=== PATIENT | female | born 1985 | race Caucasian/White ===

== ENCOUNTER 2020-11-03 09:58 | Outpatient (CLI) | payer OTHER ==
[~2020-11-03] VITALS: Ht 167.6 cm; Wt 95.5 kg
[2020-11-03 10:16] VITALS: BP 121/65
[2020-11-03 10:28] VITALS: BP 121/65
[2020-11-03 11:56] LABS: MICROSCOPIC NOT IND
[2020-11-03 12:36] LABS: BASOPHILS % (AUTO) 0 % (0-1); EOSINOPHILS % (AUTO) 0 % (1-7); LYMPHOCYTES % (AUTO) 16 % (22-44); MD NO; MEAN CORPUSCULAR HEMOGLOBIN 32.8 pg (27.0-34.8); MEAN CORPUSCULAR HGB CONC 35.3 g/dL (32.4-35.8); MEAN PLATELET VOLUME 8.4 fL (7.4-10.4); MONOCYTES % (AUTO) 5 % (2-9); NEUTROPHILS % (AUTO) 79 % (42-75); PLATELET COUNT 134 x10^3/uL (130-400); RED BLOOD COUNT 3.33 x10^6/uL (3.82-5.3); RED CELL DISTRIBUTION WIDTH 13.1 % (9.6-15.2)
[2020-11-03 12:42] LABS: ALANINE AMINOTRANSFERASE 53 U/L (12-78); ALBUMIN 2.3 g/dL (3.4-5.0); ANION GAP 8 mmol/L (5-15); CALCIUM 8.7 mg/dL (8.5-10.1); CHLORIDE 109 mmol/L (98-107); CREATININE 0.64 mg/dL (0.55-1.02)
[2020-11-03 12:45] LABS: ALKALINE PHOSPHATASE 109 U/L (45-117); BILIRUBIN,TOTAL 0.6 mg/dL (0.2-1.0); TOTAL PROTEIN 5.3 g/dL (6.4-8.2)
== END 2020-11-03 13:48 | disposition home or self-care (01) ==
LOC: LDOP 09:58
PROVIDERS: ATTEND Obstetrics & Gynecology
DX: O26.893 Other specified pregnancy related conditions, third trimester (principal); K82.4 Cholesterolosis of gallbladder; R10.10 Upper abdominal pain, unspecified; Z3A.34 34 weeks gestation of pregnancy
CPT/HCPCS: 36415; 59025; 76705; 80053; 81003; 85025; 87086

== ENCOUNTER 2020-11-04 08:59 | Outpatient (CLI) | payer OTHER ==
[~2020-11-04] VITALS: Ht 167.6 cm; Wt 95.5 kg
[2020-11-04 09:14] VITALS: BP 102/59
[2020-11-04 09:50] LABS: ALANINE AMINOTRANSFERASE 47 U/L (12-78); ALBUMIN 2.3 g/dL (3.4-5.0); ANION GAP 9 mmol/L (5-15); CALCIUM 8.4 mg/dL (8.5-10.1); CHLORIDE 105 mmol/L (98-107)
[2020-11-04 09:52] LABS: ALKALINE PHOSPHATASE 114 U/L (45-117); BILIRUBIN,TOTAL 0.7 mg/dL (0.2-1.0); TOTAL PROTEIN 5.4 g/dL (6.4-8.2)
== END 2020-11-04 10:15 | disposition home or self-care (01) ==
LOC: LDOP 08:59
PROVIDERS: ATTEND Obstetrics & Gynecology
DX: Z34.93 Encounter for supervision of normal pregnancy, unspecified, third trimester (principal); Z3A.34 34 weeks gestation of pregnancy
CPT/HCPCS: 36415; 59025; 80053

== ENCOUNTER 2020-11-07 12:17 | Observation (INO) | payer OTHER ==
[~2020-11-07] VITALS: Ht 167.6 cm; Wt 93.2 kg
[2020-11-07] MEDS ORDERED: ACETAMINOPHEN 500 MG TABLET ONE (12:42)
[2020-11-07 12:47] LABS: MICROSCOPIC INDICATED
[2020-11-07] MEDS ORDERED: ACETAMINOPHEN 500 MG TABLET PO ONE (13:00)
[2020-11-07 13:06] LABS: BASOPHILS % (AUTO) 0 % (0-1); EOSINOPHILS % (AUTO) 0 % (1-7); LYMPHOCYTES % (AUTO) 21 % (22-44); MEAN CORPUSCULAR HEMOGLOBIN 32.4 pg (27.0-34.8); MEAN CORPUSCULAR HGB CONC 34.6 g/dL (32.4-35.8); MEAN PLATELET VOLUME 8.4 fL (7.4-10.4); MONOCYTES % (AUTO) 4 % (2-9); NEUTROPHILS % (AUTO) 75 % (42-75); PLATELET COUNT 143 x10^3/uL (130-400); RED BLOOD COUNT 3.22 x10^6/uL (3.82-5.3); RED CELL DISTRIBUTION WIDTH 13.2 % (9.6-15.2)
[2020-11-07 13:08] LABS: ALANINE AMINOTRANSFERASE 80 U/L (12-78); ALBUMIN 2.3 g/dL (3.4-5.0); ANION GAP 8 mmol/L (5-15); CALCIUM 8.7 mg/dL (8.5-10.1); CHLORIDE 110 mmol/L (98-107); CREATININE 0.69 mg/dL (0.55-1.02)
[2020-11-07 13:09] LABS: MD NO
[2020-11-07 13:10] LABS: ALKALINE PHOSPHATASE 119 U/L (45-117); BILIRUBIN,TOTAL 0.5 mg/dL (0.2-1.0); TOTAL PROTEIN 5.5 g/dL (6.4-8.2)
[2020-11-07 14:12] LABS: CREATININE,URINE RANDOM 38.1 mg/dL
[2020-11-07] MEDS: LACTATED RINGERS 1,000 ML IV SCH ×3 (14:30→16:45)
[2020-11-07] MEDS ORDERED: MORPHINE SULFATE 4 MG/ML, 1ML ONE (16:08)
[2020-11-07] MEDS: MORPHINE SULFATE 4 MG/ML, 1ML IVPush PRN ×2 (16:10→16:20)
[2020-11-07] MEDS ORDERED: HYDROmorphone 2 MG/ML, 1ML ONE (16:59)
[2020-11-07] MEDS ORDERED: MAALOX/HYOSCYAMINE/LIDOCAINE 45 ML BTL PO ONE (17:00)
[2020-11-07] MEDS ORDERED: HYDROmorphone 1 MG/ML, 1ML INJ IV ONE (17:00)
[2020-11-07] MEDS ORDERED: D5%-LACTATED RINGERS 1,000 ML IV SCH (18:00)
[2020-11-07] MEDS ORDERED: ONDANSETRON 2MG/ML, 2ML ONE (18:16)
[2020-11-07] MEDS ORDERED: ONDANSETRON 2MG/ML, 2ML IVPush PRN (18:30)
[2020-11-07] MEDS ORDERED: HEPARIN 5,000 UNITS/ML, 1ML ONE (19:20)
[2020-11-07] MEDS ORDERED: HEPARIN 5,000 UNITS/ML, 1ML SQ SCH (19:30)
[2020-11-07] MEDS ORDERED: OXYC1TAB14 PO (20:37)
== END 2020-11-07 20:50 | disposition home or self-care (01) ==
LOC: LDOP 12:17 → LDIP 16:10
PROVIDERS: ADMIT Obstetrics & Gynecology; ATTEND Obstetrics & Gynecology
DX: O26.613 Liver and biliary tract disorders in pregnancy, third trimester (principal); K82.4 Cholesterolosis of gallbladder; R79.89 Other specified abnormal findings of blood chemistry; O43.93 Unspecified placental disorder, third trimester; O36.1930 Maternal care for other isoimmunization, third trimester, not applicable or unspecified; Z3A.34 34 weeks gestation of pregnancy; Z79.82 Long term (current) use of aspirin; Z79.899 Other long term (current) drug therapy
CPT/HCPCS: 36415; 59025; 76705; 80053; 81001; 82150; 82570; 83690; 84156; 85025; 87086; 96361; 96372; 96374; 96375; G0378; J1170; J1644; J2270; J2405; J7120; J7121; 96360

== ENCOUNTER 2020-11-18 13:41 | Outpatient (CLI) | payer OTHER ==
[~2020-11-18 13:41] MED LIST: OXYC1TAB14 PO
== END 2020-11-18 23:59 | disposition home or self-care (01) ==
LOC: STAR 13:41
PROVIDERS: ATTEND Obstetrics & Gynecology
DX: Z20.822 Contact with and (suspected) exposure to COVID-19 (principal)
CPT/HCPCS: 87635

== ENCOUNTER 2020-11-23 05:36 | Inpatient (IN) | payer OTHER ==
[~2020-11-23] VITALS: Ht 167.6 cm; Wt 90.5 kg
[2020-11-23] MEDS ORDERED: NEWBORN KIT ONE (06:05)
[2020-11-23] MEDS ORDERED: CEFAZOLIN PMX 1GM/50ML 50 ML IVPB ONE (06:30)
[2020-11-23] MEDS ORDERED: LACTATED RINGERS 1,000 ML IVBOLUS ONE (06:30)
[2020-11-23] MEDS ORDERED: SODIUM CITRATE/CITRIC ACID 30 ML UDC PO ONE (06:30)
[2020-11-23] MEDS ORDERED: AZITHROMYCIN 500 MG in SODIUM CHLORIDE 0.9% 250 ML IV ONE (06:30)
[2020-11-23] MEDS ORDERED: METOCLOPRAMIDE 5 MG/ML, 2ML IV ONE (06:30)
[2020-11-23] MEDS ORDERED: METOCLOPRAMIDE 5 MG/ML, 2ML ONE (06:53)
[2020-11-23] MEDS ORDERED: OXYTOCIN 30U/ 0.9% NaCL 500ML 500 ML ONE (06:53)
[2020-11-23] MEDS ORDERED: SODIUM CITRATE/CITRIC ACID 15 ML UDC ONE (06:53)
[2020-11-23 06:55] LABS: BASOPHILS % (AUTO) 0 % (0-1); EOSINOPHILS % (AUTO) 0 % (1-7); LYMPHOCYTES % (AUTO) 31 % (22-44); MEAN CORPUSCULAR HEMOGLOBIN 33.3 pg (27.0-34.8); MEAN CORPUSCULAR HGB CONC 35.2 g/dL (32.4-35.8); MEAN PLATELET VOLUME 9.4 fL (7.4-10.4); MONOCYTES % (AUTO) 6 % (2-9); NEUTROPHILS % (AUTO) 62 % (42-75); PLATELET COUNT 152 x10^3/uL (130-400); RED BLOOD COUNT 3.11 x10^6/uL (3.82-5.3)
[2020-11-23 06:56] LABS: MD NO
[2020-11-23 07:54] LABS: INTERNATIONAL NORMALIZED RATIO 0.92 (0.93-1.1); PROTHROMBIN TIME 9.9 Seconds (9.6-11.5)
[2020-11-23] MEDS ORDERED: MISOPROSTOL 200 MCG TABLET SL PRN (08:30)
[2020-11-23] MEDS ORDERED: IBUPROFEN 800 MG TABLET PO PRN (08:30)
[2020-11-23] MEDS ORDERED: OXYTOCIN 30U/ 0.9% NaCL 500ML 500 ML IV SCH (08:30)
[2020-11-23] MEDS ORDERED: SIMETHICONE 80 MG CHEW TAB PO PRN (08:30)
[2020-11-23] MEDS ORDERED: METHYLERGONOVINE 0.2 MG/ML IM PRN (08:30)
[2020-11-23] MEDS ORDERED: MORPHINE SULFATE 4 MG/ML, 1ML IVPush PRN (08:30)
[2020-11-23] MEDS ORDERED: CALCIUM CARBONATE 500 MG TAB.CHEW PO PRN (08:30)
[2020-11-23] MEDS ORDERED: LACTATED RINGERS 1,000 ML IV SCH ×2 (08:30→10:00)
[2020-11-23] MEDS ORDERED: ONDANSETRON 2MG/ML, 2ML IV PRN (08:30)
[2020-11-23] MEDS ORDERED: METOCLOPRAMIDE 5 MG/ML, 2ML IV PRN (08:30)
[2020-11-23] MEDS ORDERED: OXYcodone IR 5MG TABLET PO PRN (08:30)
[2020-11-23 08:48] LABS: ALANINE AMINOTRANSFERASE 18 U/L (12-78); ALBUMIN 2.2 g/dL (3.4-5.0); ANION GAP 10 mmol/L (5-15); CALCIUM 8.7 mg/dL (8.5-10.1); CHLORIDE 107 mmol/L (98-107); CREATININE 0.81 mg/dL (0.55-1.02)
[2020-11-23 08:50] LABS: ALKALINE PHOSPHATASE 126 U/L (45-117); BILIRUBIN,TOTAL 0.5 mg/dL (0.2-1.0); TOTAL PROTEIN 5.6 g/dL (6.4-8.2)
[2020-11-23] MEDS: PRENATAL VIT/IRON/FA 1 EACH TABLET PO SCH (09:00)
[2020-11-23] MEDS ORDERED: DEXAMETHASONE 4 MG/ML, 1ML ONE (09:06)
[2020-11-23] MEDS ORDERED: FENTANYL PF 100 MCG/2ML ONE (09:06)
[2020-11-23] MEDS ORDERED: KETOROLAC 30 MG/1 ML ONE (09:06)
[2020-11-23] MEDS ORDERED: EPHEDRINE 50 MG/ML, 1ML ONE (09:06)
[2020-11-23] MEDS ORDERED: ONDANSETRON 2MG/ML, 2ML ONE (09:06)
[2020-11-23] MEDS ORDERED: OXYTOCIN 10 UNITS/ML, 1ML ONE (09:06)
[2020-11-23] MEDS ORDERED: CEFAZOLIN 1,000 MG ONE (09:06)
[2020-11-23] MEDS ORDERED: PHENYLEPHRINE 10 MG/ML ONE (09:06)
[2020-11-23] MEDS ORDERED: HYDROmorphone 2 MG/ML, 1ML IVPush PRN (09:30)
[2020-11-23] MEDS ORDERED: LABETALOL 5MG/ML, 20ML IV PRN (09:30)
[2020-11-23] MEDS ORDERED: ONDANSETRON 2MG/ML, 2ML IVPush PRN (09:30)
[2020-11-23] MEDS ORDERED: ALBUTEROL SULFATE 2.5 MG/3 ML NPPB PRN (09:30)
[2020-11-23] MEDS ORDERED: hydrALAzine 20 MG/ML, 1ML IV PRN (09:30)
[2020-11-23] MEDS ORDERED: EPHEDRINE 50 MG/ML, 1ML IVPush PRN (09:30)
[2020-11-23] MEDS ORDERED: METOPROLOL 1 MG/ML, 5ML IV PRN (09:30)
[2020-11-23] MEDS ORDERED: HYDROcodone/APAP 7.5-325MG/15ML UDC PO PRN (09:30)
[2020-11-23] MEDS ORDERED: PROMETHAZINE 25 MG/ML, 1ML IV PRN (09:30)
[2020-11-23] MEDS ORDERED: MEPERIDINE/PF 25MG/0.5ML IVPush PRN (09:30)
[2020-11-23] MEDS ORDERED: OXYcodone 5 MG/5 ML ORAL.SOL UDC PO PRN (09:30)
[2020-11-23] MEDS ORDERED: FENTANYL PF 100 MCG/2ML IV PRN (09:30)
[2020-11-23] MEDS ORDERED: MIDAZOLAM 1 MG/ML, 2ML IV PRN (09:30)
[2020-11-23] MEDS ORDERED: DIPH,PERTUSS(ACELL),TET VAC/PF NC IM-VACC PRN (10:00)
[2020-11-23] MEDS: KETOROLAC 30 MG/1 ML IV SCH ×3 (10:00→21:37)
[2020-11-23] MEDS ORDERED: HYDROmorphone 2 MG/ML, 1ML ONE (10:04)
[2020-11-23] MEDS ORDERED: MEPERIDINE/PF 50 MG/ML ONE (11:16)
[2020-11-23 11:55] VITALS: BP 149/83
[2020-11-23] MEDS: OXYcodone IR 5MG TABLET PO PRN ×3 (13:27→21:37)
[2020-11-23] MEDS: ACETAMINOPHEN 325 MG TABLET PO PRN ×2 (13:27→21:37)
[2020-11-23 15:44] LABS: BASOPHILS % (AUTO) 0 % (0-1); EOSINOPHILS % (AUTO) 0 % (1-7); LYMPHOCYTES % (AUTO) 7 % (22-44); MONOCYTES % (AUTO) 3 % (2-9); NEUTROPHILS % (AUTO) 90 % (42-75); PLATELET COUNT 142 x10^3/uL (130-400); RED BLOOD COUNT 3.19 x10^6/uL (3.82-5.3); RED CELL DISTRIBUTION WIDTH 14.1 % (9.6-15.2)
[2020-11-23 16:05] LABS: MD NO
[2020-11-23 16:15] VITALS: BP 148/81
[2020-11-23] MEDS: DOCUSATE 100 MG CAPSULE PO SCH ×2 (17:29→21:37)
[2020-11-23 20:00] VITALS: BP 134/82
[2020-11-24 00:05] VITALS: BP 151/87
[2020-11-24] MEDS: KETOROLAC 30 MG/1 ML IV SCH ×4 (03:42→22:10)
[2020-11-24] MEDS: OXYcodone IR 5MG TABLET PO PRN ×3 (03:43→20:33)
[2020-11-24] MEDS: ACETAMINOPHEN 325 MG TABLET PO PRN ×4 (03:44→20:33)
[2020-11-24 03:56] VITALS: BP 151/91
[2020-11-24] MEDS: DOCUSATE 100 MG CAPSULE PO SCH ×2 (07:54→20:33)
[2020-11-24 08:00] VITALS: BP 137/86
[2020-11-24] MEDS: PRENATAL VIT/IRON/FA 1 EACH TABLET PO SCH (09:00)
[2020-11-24] MEDS: ENOXAPARIN 40 MG/0.4 ML SQ SCH (11:51)
[2020-11-24 20:30] VITALS: BP_SYST 154; BP_SYST 157; BP_DIAS 108; BP_DIAS 88
[2020-11-24 21:15] VITALS: BP 138/89
[2020-11-25 01:02] VITALS: BP 161/91
[2020-11-25] MEDS: ACETAMINOPHEN 325 MG TABLET PO PRN (01:06)
[2020-11-25] MEDS: OXYcodone IR 5MG TABLET PO PRN ×2 (01:07→08:56)
[2020-11-25 02:11] VITALS: BP 143/88
[2020-11-25] MEDS: KETOROLAC 30 MG/1 ML IV SCH (04:00)
[2020-11-25 04:02] VITALS: BP 140/75
[2020-11-25] MEDS ORDERED: IBUP-1223 PO (06:21)
[2020-11-25] MEDS ORDERED: DOCU-131 PO (06:22)
[2020-11-25] MEDS ORDERED: ENOX40SY4 SQ (06:22)
[2020-11-25] MEDS ORDERED: OXYC1TAB14 PO ×2 (06:24→09:34)
[2020-11-25] MEDS ORDERED: PRENATAL VIT/IRON/FA 1 EACH TABLET ONE (08:10)
[2020-11-25 08:45] VITALS: BP 142/84
[2020-11-25] MEDS: DOCUSATE 100 MG CAPSULE PO SCH (08:55)
[2020-11-25] MEDS: PRENATAL VIT/IRON/FA 1 EACH TABLET PO SCH (08:58)
[2020-11-25 09:15] VITALS: BP 138/87
[2020-11-25] MEDS ORDERED: IBUPROFEN 800 MG TABLET PO PRN (10:00)
[2020-11-25] MEDS ORDERED: IBUPROFEN 200 MG TABLET PO PRN (10:00)
[2020-11-25] MEDS: ENOXAPARIN 40 MG/0.4 ML SQ SCH (11:39)
== END 2020-11-25 13:25 | disposition home or self-care (01) | DRG 788 ==
LOC: LDIP 05:36 → 2NW 11:51
PROVIDERS: ADMIT Obstetrics & Gynecology; ATTEND Obstetrics & Gynecology
PROC: 10D00Z1 Extraction of Products of Conception, Low, Open Approach (ICD-10-PCS; principal; 2020-11-23)
DX: O43.213 Placenta accreta, third trimester (principal); Z37.0 Single live birth; Z3A.37 37 weeks gestation of pregnancy; O43.123 Velamentous insertion of umbilical cord, third trimester; O13.4 Gestational [pregnancy-induced] hypertension without significant proteinuria, complicating childbirth; Z20.822 Contact with and (suspected) exposure to COVID-19; O69.4XX0 Labor and delivery complicated by vasa previa, not applicable or unspecified; O99.62 Diseases of the digestive system complicating childbirth; K82.4 Cholesterolosis of gallbladder; Z80.3 Family history of malignant neoplasm of breast; Z82.49 Family history of ischemic heart disease and other diseases of the circulatory system
CPT/HCPCS: 36415; 80053; 84550; 85025; 85384; 85610; 85730; 86592; 86850; 86900; 86923; 87635; 88305; G0378; J0690; J1100; J1170; J1650; J1885; J2175; J2405; J3010; J2370; J2590; J2765; J7120

== ENCOUNTER 2020-12-19 06:05 | Day surgery (SDC) | payer OTHER ==
[~2020-12-19] VITALS: Ht 167.6 cm; Wt 75.2 kg
[~2020-12-19 06:05] MED LIST changes: +DOCU-131 PO; +ENOX40SY4 SQ; +IBUP-1223 PO; +LABE100T6 PO; +PNV1TABL26 PO
[2020-12-19 06:38] LABS: HCG UR SG 1.034 (1.003-1.030)
[2020-12-19 06:42] VITALS: BP 110/77
[2020-12-19] MEDS ORDERED: INDOCYANINE GREEN 25 MG VIAL IVPush ONE (07:00)
[2020-12-19] MEDS ORDERED: CHLORHEXIDINE 15 ML UDC PO ONE (07:00)
[2020-12-19] MEDS ORDERED: LACTATED RINGERS 1,000 ML IV SCH (07:00)
[2020-12-19] MEDS ORDERED: INDOCYANINE GREEN 25 MG VIAL ONE (07:20)
[2020-12-19] MEDS ORDERED: EPINEPHRINE 1 MG/ML, 1ML ONE (07:39)
[2020-12-19] MEDS ORDERED: BUPIVACAINE/PF 0.5% ONE (07:39)
[2020-12-19] MEDS ORDERED: FENTANYL PF 250 MCG/5ML ONE (07:52)
[2020-12-19] MEDS ORDERED: MIDAZOLAM 1 MG/ML, 2ML ONE (07:52)
[2020-12-19] MEDS ORDERED: hydrALAzine 20 MG/ML, 1ML IV PRN (08:00)
[2020-12-19] MEDS ORDERED: MEPERIDINE/PF 25MG/0.5ML IVPush PRN (08:00)
[2020-12-19] MEDS ORDERED: ACETAMINOPHEN 325 MG TABLET PO PRN (08:00)
[2020-12-19] MEDS ORDERED: HYDROmorphone 1 MG/ML, 1ML INJ IVPush PRN (08:00)
[2020-12-19] MEDS ORDERED: LABETALOL 5MG/ML, 20ML IV PRN (08:00)
[2020-12-19] MEDS ORDERED: HALOPERIDOL 5 MG/ML IV PRN (08:00)
[2020-12-19] MEDS ORDERED: PROMETHAZINE 25 MG/ML, 1ML IVPush PRN (08:00)
[2020-12-19] MEDS ORDERED: DIPHENHYDRAMINE 50 MG/ML, 1ML IVPush PRN (08:00)
[2020-12-19] MEDS ORDERED: DEXAMETHASONE 4 MG/ML, 1ML ONE (08:03)
[2020-12-19] MEDS ORDERED: SUCCINYLCHOLINE 20 MG/ML, 10ML ONE (08:39)
[2020-12-19] MEDS ORDERED: PROPOFOL 10 MG/ML, 20ML ONE (08:39)
[2020-12-19] MEDS ORDERED: ROCURONIUM 10MG/ML,5ML ONE (08:39)
[2020-12-19] MEDS ORDERED: ONDANSETRON 2MG/ML, 2ML ONE (08:39)
[2020-12-19] MEDS ORDERED: NEOSTIGMINE 1 MG/ML, 10ML ONE (08:39)
[2020-12-19] MEDS ORDERED: GLYCOPYRROLATE 0.2MG/1ML, 5ML ONE (08:39)
[2020-12-19] MEDS ORDERED: CEFAZOLIN 1,000 MG ONE (08:39)
[2020-12-19] MEDS ORDERED: ONDA4TAB7 PO (09:14)
[2020-12-19] MEDS ORDERED: HYDR-1067 PO (09:14)
[2020-12-19] MEDS ORDERED: ACETAMINOPHEN 650 MG/20.3 ML UDC ONE (09:15)
[2020-12-19] MEDS ORDERED: OXYcodone 5 MG/5 ML ORAL.SOL UDC ONE (09:15)
[2020-12-19] MEDS ORDERED: FENTANYL PF 100 MCG/2ML ONE (09:15)
[2020-12-19] MEDS: FENTANYL PF 100 MCG/2ML IV PRN ×2 (09:19→09:30)
[2020-12-19] MEDS: OXYcodone 5 MG/5 ML ORAL.SOL UDC PO PRN ×2 (09:22→10:29)
[2020-12-19] MEDS ORDERED: MEPERIDINE/PF 25MG/ML,1ML ONE (09:51)
== END 2020-12-19 12:35 | disposition home or self-care (01) ==
LOC: OUT 06:05
PROVIDERS: ATTEND Surgery
DX: K80.10 Calculus of gallbladder with chronic cholecystitis without obstruction (principal); K66.0 Peritoneal adhesions (postprocedural) (postinfection); Z20.822 Contact with and (suspected) exposure to COVID-19; Z79.1 Long term (current) use of non-steroidal anti-inflammatories (NSAID); Z79.891 Long term (current) use of opiate analgesic; Z79.899 Other long term (current) drug therapy
CPT/HCPCS: 47562; 81025; 88304; C1729; J0171; J0330; J0690; J1100; J2175; J2250; J2405; J2704; J2710; J3010; J7120; U0003